=== PATIENT | male | born 1985 | race Caucasian/White ===

== ENCOUNTER 2017-12-27 18:36 | Emergency (ER) | payer MEDICAID, OTHER | END 2017-12-27 22:09 | disposition home or self-care (01) | LOC: E/R 18:36 | DX: S02.2XXA Fracture of nasal bones, initial encounter for closed fracture (principal); W22.8XXA Striking against or struck by other objects, initial encounter; Y92.9 Unspecified place or not applicable | CPT/HCPCS: 70160; 99284-25 ==

== ENCOUNTER 2018-08-14 19:51 | Emergency (ER) | payer OTHER, MEDICAID | END 2018-08-14 21:53 | disposition home or self-care (01) | LOC: E/R 19:51 | DX: F10.920 Alcohol use, unspecified with intoxication, uncomplicated (principal); R40.2142 Coma scale, eyes open, spontaneous, at arrival to emergency department; R40.2362 Coma scale, best motor response, obeys commands, at arrival to emergency department; R40.2242 Coma scale, best verbal response, confused conversation, at arrival to emergency department; S00.81XA Abrasion of other part of head, initial encounter; R51 Headache; W10.9XXA Fall (on) (from) unspecified stairs and steps, initial encounter; Y92.9 Unspecified place or not applicable | CPT/HCPCS: 70450; 72125; 99284-25 ==